=== PATIENT | female | born 1975 | race Caucasian/White ===

== ENCOUNTER 2025-03-02 12:05 | Emergency (ER) | payer OTHER ==
[~2025-03-02] VITALS: Ht 152.4 cm; Wt 83.6 kg
[2025-03-02 12:09] VITALS: BP 120/67; PULSE 64; RESP 18; TEMP 97.9; O2SAT 96
== END 2025-03-02 14:10 | disposition left against medical advice (07) ==
LOC: EMS 12:08
DX: R51.9 Headache, unspecified (principal); Z53.21 Procedure and treatment not carried out due to patient leaving prior to being seen by health care provider
CPT/HCPCS: 99281; Z7502